=== PATIENT | male | born 1940 | race Caucasian/White ===

== ENCOUNTER 2023-09-07 09:25 | Day surgery (SDC) | payer MEDICARE, OTHER ==
--- NOTE | 2023-09-07 07:57 | HP ---
DATE OF SURGERY: 09/07/2023 HISTORY OF PRESENT ILLNESS: The patient is an 83-year-old with dysphagia upper esophagus. He was in [facility] after he could not swallow chicken x10 at his home. Last upper endoscopy and dilatation four years ago. Family history negative for esophageal cancer. PAST MEDICAL HISTORY: Heart disease and dysphagia that required dilatation in the past. PAST SURGICAL HISTORY: Coronary stent in the past. Upper endoscopy and dilatation in the past. MEDICATIONS: Aspirin. Rosuvastatin for hyperlipidemia. He has been on some nitroglycerin PRN, metoprolol, levothyroxine for hypothyroidism, doxycycline, carvedilol, bupropion, amlodipine. ALLERGIES: NKDA. FAMILY HISTORY: Negative for esophageal cancer. SOCIAL HISTORY: No smoking or alcohol abuse. REVIEW OF SYSTEMS: Twelve systems reviewed. No chest pain or palpitations. Other systems negative or noncontributory as above and per preadmission questionnaire. PHYSICAL EXAMINATION: Height 5 feet 11 inches. BMI 19.8. GENERAL: No acute distress. HEENT: Sclerae nonicteric. EOMI. Oral mucous membranes moist. NECK: No JVD. CHEST: Equal excursion, nonlabored breathing. CVS: Regular rate and rhythm. ABDOMEN: Soft. No peritoneal signs. EXTREMITIES: No significant edema or cyanosis. NEURO: Alert, oriented, moving extremities symmetrically. PSYCH: Appropriate mood and affect. SKIN: Dry. IMPRESSION: Dysphagia upper esophagus. I recommend EGD possible biopsy possible dilatation. He was shown the risk sheet explained the procedure in detail including but not limited to bleeding or infection, risk of bowel injury or perforation possibly requiring further procedure or transfer to tertiary center for stent placement, possible no improvement in his swallowing possibly requiring other procedures, dilators or referrals, risk of possible neurologic or functional problem, narrowing or painful narrowing that dilatation may not benefit. If dilatation is performed and improves swallowing might need repeated again down the road. The patient understands and agrees to the planned procedure, will hold his blood thinners preoperative otherwise continue medications for heart disease, hyperlipidemia, hypothyroidism and hypertension. Will proceed with EGD, possible biopsy, possible dilatation as an outpatient.
[2023-09-07 10:10] VITALS: RESP 16
[2023-09-07] MEDS: APRESOLINE 20 MG/ML INJ IV ONE (10:10)
[2023-09-07] MEDS: Lactated Ringers 1,000 ML IV SCH (10:11)
[2023-09-07] MEDS ORDERED: Xylocaine-Mpf 2% 5 Ml Vial ONE (12:07)
[2023-09-07] MEDS ORDERED: DIPRIVAN 200 MG/20 ML IV ONE (12:08)
[2023-09-07 13:07] VITALS: BP 177/94; PULSE 64; TEMP 97.4; O2SAT 95
--- NOTE | 2023-09-08 09:10 | OP ---
SURGERY DATE/TIME: 09/07/2023 1209 PREOPERATIVE DIAGNOSIS: Dysphagia. POSTOPERATIVE DIAGNOSES: 1) Erosive gastritis. 2) Erythema distal esophagus. 3) Proximal esophageal narrowing and spasm without any cristobal mass. 4) ASA Class III. PROCEDURES: 1) EGD with cold biopsy to antrum to evaluate for Helicobacter pylori. 2) Cold biopsy distal esophagus to evaluate for inflammation. 3) Cold biopsy mid esophagus to evaluate for eosinophilic esophagitis. 4) Proximal esophageal balloon dilatation (size 20 balloon dilator). SURGEON: Dr. Yvon Louise. ANESTHESIA: MAC. ESTIMATED BLOOD LOSS: Minimal. INDICATIONS: As noted above. Risks and benefits explained in detail and not limited to and consent obtained. DESCRIPTION OF PROCEDURE AND FINDINGS: The patient taken to the endoscopy room. MAC anesthesia introduced. After official time out and no disagreement with planned procedure, bite block positioned. Video gastroscope easily passed down the oropharynx. There was some proximal esophageal narrowing and spasm. There did not appear to be any cristobal mass to biopsy there. The scope was able to be passed through here through the distal esophagus to the patent pylorus to the junction of the second and third portion of the duodenum. Duodenum grossly unremarkable. Back in the stomach, there was some small erosion versus gastritis. Cold biopsy to evaluate for Helicobacter pylori. On retroflex, the gastroesophageal junction snug against the scope. The scope pulled back. The gastroesophageal junction about 40 cm. There was a little bit of erythema in the distal esophagus with a little bit of streaking question whether there is a risk of eosinophilic esophagitis some random cold biopsies taken of distal esophagus and mid esophagus to evaluate for eosinophilic esophagitis and for histology. Good hemostasis noted. Scope passed back down the stomach and a 20 balloon catheter is carefully inserted in the stomach and pulled up to the proximal esophagus. Dilating to first stage for a few seconds. The patient was coughing and hacking with the balloon a little bit but the scope was able to be passed up to size 19, second stage about 30 seconds and final stage size 20 balloon dilator for 2 minutes. He did have some coughing during that time. The balloon catheter is then decompressed and removed. The scope much more easily passed through here down in the stomach and carefully withdrawn. Biopsy sites had good hemostasis. There was mild mucosal abrasion where dilatation had been accomplished in proximal esophagus. There did not appear to be any visible full thickness issues. The scope is withdrawn. The patient tolerated the procedure well. There was no family to discuss the findings with out in the waiting area.
== END 2023-09-07 13:20 | disposition home or self-care (01) ==
LOC: SDC 09:25
PROVIDERS: ATTEND Surgery
DX: K29.70 Gastritis, unspecified, without bleeding (principal); R13.10 Dysphagia, unspecified; K22.89 Other specified disease of esophagus; K22.2 Esophageal obstruction
CPT/HCPCS: 93005; 99100; C1726; J0360; J2704